=== PATIENT | female | born 1945 | race Caucasian/White ===

== ENCOUNTER 2016-12-09 00:49 | Inpatient (IN) | payer MEDICARE, OTHER ==
--- NOTE | 2016-12-09 01:15 | ED ---
Altered Mental Status HPI - General Chief Complaint: Altered Mental Status Stated Complaint: poss pneumonia Time Seen by Provider: 12/09/16 00:53 Source: EMS Mode of arrival: EMS Limitations: altered mental status - History of Present Illness Initial Comments: This patient is 71-year-old woman reported with history of dementia, sent from [facility] to be evaluated for change in her status. The patient has reportedly been less alert and also not verbal. She reportedly is usually able answer some questions, today she is not responding verbally. They state that the last time that she was like this she had a pneumonia. MD Complaint: altered mental status -: unknown Severity: moderate Context: history of similar presentation Treatments Prior to Arrival: oxygen - Related Data Home Medications Medication Instructions Recorded Confirmed Bisacodyl [Dulcolax] 10 mg RECTAL DAILY PRN 06/19/16 07/17/16 Escitalopram [Lexapro] 20 mg PO DAILY 06/19/16 07/17/16 Loperamide [Imodium] 4 mg PO DAILY PRN 06/19/16 07/17/16 Melatonin 10 mg PO HS@[id number]/19/16 07/17/16 Midodrine [ProAmatine] 5 mg PO TID 06/19/16 07/17/16 Omeprazole 20 mg PO DAILY 06/19/16 07/17/16 Acetaminophen Tab [Tylenol] 650 mg PO Q4H PRN 07/17/16 07/17/16 OLANZapine [ZyPREXA] 5 mg PO DAILY 07/17/16 07/17/16 OLANZapine [ZyPREXA] 10 mg PO HS 07/17/16 07/17/16 Sennosides [Senna] 8.6 mg PO HS 07/17/16 07/17/16 traMADol HCl [Ultram] 100 mg PO Q6HR PRN 07/17/16 07/17/16 Previous Rx's Medication Instructions Recorded Ipratropium-Albuterol Nebulize 3 ml INHALATION RT-QID ampul.neb 06/22/16 [Duoneb 0.5 mg-3 mg/3 ml Soln] Amoxic-Pot Clav 875-125Mg 1 tab PO Q12HR 5 Days 07/21/16 [Augmentin 875-125] Baclofen [Lioresal] 5 mg PO BID #0 07/21/16 Allergies Allergy/AdvReac Type Severity Reaction Status Date / Time haloperidol [From Haldol] Allergy Unknown Verified 07/17/16 08:08 haloperidol lactate Allergy Unknown Verified 07/17/16 08:08 [From Haldol] lithium Allergy Unknown Verified 07/17/16 08:08 Review of Systems ROS Statement: Those systems with pertinent positive or pertinent negative responses have been documented in the HPI. ROS Other: All systems not noted in ROS Statement are negative. Limitations: ROS unobtainable due to patients medical condition Past Medical History Past Medical History: Eye Disorder, GERD/Reflux, GI Bleed Additional Past Medical History / Comment(s): Pt recently admitted 06/19/16 to [facility] with pneumonia. Other HX: Schizophrenia with short term memory problems -shruthi states she does not have dementia, hypotension, lower GI bleed, PUD, anemia , acute blood loss anemia possible due to colitis, cataracts bilaterally, spinal stenosis-chronic back pain, cervicle DDD, gait disturbance, muscle spasms , UTI History of Any Multi-Drug Resistant Organisms: None Reported Past Surgical History: Adenoidectomy, Orthopedic Surgery, Tonsillectomy Additional Past Surgical History / Comment(s): R ankle sx 1960, EGD/colonoscopy. Past Anesthesia/Blood Transfusion Reactions: No Reported Reaction Past Psychological History: Anxiety, Depression, Schizoaffective Disorder Additional Psychological History / Comment(s): Pt currently resides at [facility]. She had recently lived in the [facility]. She until recent pneumonia had been walking with a walker. She is receiving PT at [facility]. She is on a mechanical soft diet-has dentures but wears them infrequently-nectar liquids. She needs assist with all ADLs. Smoking Status: Former smoker Past Alcohol Use History: None Reported Additional Past Alcohol Use History / Comment(s): Pt started smoking about age 21 yrs. She quit in 2011. Past Drug Use History: None Reported - Past Family History Father Family Medical History: Eye Disorder Additional Family Medical History / Comment(s): Father lived to be 88yrs old. Mother Family Medical History: Diabetes Mellitus Additional Family Medical History / Comment(s): Mother lived to be 87 yrs old. General Exam Limitations: altered mental status General appearance: alert, cachectic, other (This patient is an elderly woman who is cachectic and not verbally responsive. She does follow the examiner with her eyes.) Head exam: Present: atraumatic, normocephalic Eye exam: Present: PERRL, EOMI. Absent: scleral icterus, conjunctival injection ENT exam: Present: mucous membranes dry Neck exam: Present: normal inspection. Absent: tenderness, meningismus Respiratory exam: Present: normal lung sounds bilaterally, rhonchi. Absent: respiratory distress, wheezes, rales, stridor, decreased breath sounds Cardiovascular Exam: Present: normal rhythm, tachycardia, normal heart sounds. Absent: systolic murmur, diastolic murmur, rubs, gallop GI/Abdominal exam: Present: soft, tenderness (There is moderate tenderness to lower abdomen greater on the right than left side.), diminished bowel sounds. Absent: distended, guarding, rebound, rigid, mass, pulsatile mass, hernia Extremities exam: Present: normal inspection, normal capillary refill. Absent: pedal edema, calf tenderness Back exam: Present: normal inspection. Absent: CVA tenderness (R), CVA tenderness (L) Neurological exam: Present: alert, other (Patient is not able to cooperate with the neurologic exam.) Skin exam: Present: warm, dry, intact, normal color. Absent: rash Course Vital Signs 12/09/16 12/09/16 12/09/16 00:59 02:00 02:28 Temperature 98.1 F Pulse Rate 124 H 125 H 118 H Respiratory 18 18 18 Rate Blood Pressure 87/65 120/80 117/75 O2 Sat by Pulse 91 L 97 97 Oximetry - Reevaluation(s) Reevaluation #1: 12/09/16 03:19 After reviewing the patient's chest x-ray, I added a computed tomography scan of the abdomen for the free air. I also phoned the patient's daughter at home to discuss treatment options for the free air. Consistent with the wishes for full care, I discussed case with Dr. Greco and apprised her of the CT findings and of the lab results. At this point the patient is too unstable to take to the OR and will require some further resuscitation and correction of electrolyte abnormalities including hyperkalemia. I am placing a central line to facilitate fluid and medication administration. The patient will be admitted to the ICU and we will contact the re etcher on-call. Medical Decision Making - Lab Data Result diagrams: 12/09/16 01:20 12/09/16 01:20 Lab Results 12/09/16 12/09/16 12/09/16 Range/Units 01:20 01:20 01:20 WBC 32.2 H* (3.8-10.6) k/uL RBC 3.87 (3.80-5.40) m/uL Hgb 11.5 (11.4-16.0) gm/dL Hct 37.0 (34.0-46.0) % MCV 95.5 D (80.0-100.0) fL MCH 29.6 (25.0-35.0) pg MCHC 31.0 (31.0-37.0) g/dL RDW 13.5 (11.5-15.5) % Plt Count 1134 H* D (150-450) k/uL Neutrophils % (Manual) 85.5 % Band Neutrophils % 13.5 % Lymphocytes % (Manual) 0.5 % Monocytes % (Manual) 0.5 % Neutrophils # (Manual) 31.9 H (1.3-7.7) k/uL Lymphocytes # (Manual) 0.2 L (1.0-4.8) k/uL Monocytes # (Manual) 0.2 (0-1.0) k/uL Nucleated RBCs 0 (0-0) /100 WBC Manual Slide Review Performed Toxic Vacuolation Present Hypochromasia Slight PT 12.3 H (9.0-12.0) sec INR 1.2 (<1.1) APTT 26.1 (22.0-30.0) sec Sodium 144 (137-145) mmol/L Potassium 7.5 H* (3.5-5.1) mmol/L Chloride 109 H (98-107) mmol/L Carbon Dioxide 19 L (22-30) mmol/L Anion Gap 16 mmol/L BUN 99 H* (7-17) mg/dL Creatinine 2.50 H (0.52-1.04) mg/dL Est GFR (MDRD) Af Amer 23 (>60 ml/min/1.73 sqM) Est GFR (MDRD) Non-Af 19 (>60 ml/min/1.73 sqM) Glucose 79 (74-99) mg/dL Plasma Lactic Acid Sandeep (0.7-2.0) mmol/L Calcium 8.9 (8.4-10.2) mg/dL Total Bilirubin 0.9 (0.2-1.3) mg/dL AST 45 H (14-36) U/L ALT 30 (9-52) U/L Alkaline Phosphatase 205 H (38-126) U/L Troponin I (0.000-0.034) ng/mL Total Protein 5.8 L (6.3-8.2) g/dL Albumin 2.4 L (3.5-5.0) g/dL Urine Color Urine Appearance (Clear) Urine pH (5.0-8.0) Ur Specific [place] (1.001-1.035) Urine Protein (Negative) Urine Glucose (UA) (Negative) Urine Ketones (Negative) Urine Blood (Negative) Urine Nitrite (Negative) Urine Bilirubin (Negative) Urine Urobilinogen (<2.0) mg/dL Ur Leukocyte Esterase (Negative) Urine RBC (0-5) /hpf Urine WBC (0-5) /hpf Ur Squamous Epith Cells (0-4) /hpf Amorphous Sediment (None) /hpf Urine Mucus (None) /hpf 12/09/16 12/09/16 12/09/16 Range/Units 01:20 01:45 01:50 WBC (3.8-10.6) k/uL RBC (3.80-5.40) m/uL Hgb (11.4-16.0) gm/dL Hct (34.0-46.0) % MCV (80.0-100.0) fL MCH (25.0-35.0) pg MCHC (31.0-37.0) g/dL RDW (11.5-15.5) % Plt Count (150-450) k/uL Neutrophils % (Manual) % Band Neutrophils % % Lymphocytes % (Manual) % Monocytes % (Manual) % Neutrophils # (Manual) (1.3-7.7) k/uL Lymphocytes # (Manual) (1.0-4.8) k/uL Monocytes # (Manual) (0-1.0) k/uL Nucleated RBCs (0-0) /100 WBC Manual Slide Review Toxic Vacuolation Hypochromasia PT (9.0-12.0) sec INR (<1.1) APTT (22.0-30.0) sec Sodium (137-145) mmol/L Potassium (3.5-5.1) mmol/L Chloride (98-107) mmol/L Carbon Dioxide (22-30) mmol/L Anion Gap mmol/L BUN (7-17) mg/dL Creatinine (0.52-1.04) mg/dL Est GFR (MDRD) Af Amer (>60 ml/min/1.73 sqM) Est GFR (MDRD) Non-Af (>60 ml/min/1.73 sqM) Glucose (74-99) mg/dL Plasma Lactic Acid Sandeep 2.5 H* (0.7-2.0) mmol/L Calcium (8.4-10.2) mg/dL Total Bilirubin (0.2-1.3) mg/dL AST (14-36) U/L ALT (9-52) U/L Alkaline Phosphatase (38-126) U/L Troponin I <0.012 (0.000-0.034) ng/mL Total Protein (6.3-8.2) g/dL Albumin (3.5-5.0) g/dL Urine Color Dark Brown Urine Appearance Turbid H (Clear) Urine pH 5.5 (5.0-8.0) Ur Specific [place] 1.018 (1.001-1.035) Urine Protein 2+ H (Negative) Urine Glucose (UA) Negative (Negative) Urine Ketones Negative (Negative) Urine Blood Negative (Negative) Urine Nitrite Negative (Negative) Urine Bilirubin 1+ H (Negative) Urine Urobilinogen 3.0 (<2.0) mg/dL Ur Leukocyte Esterase Small H (Negative) Urine RBC 8 H (0-5) /hpf Urine WBC 10 H (0-5) /hpf Ur Squamous Epith Cells 17 H (0-4) /hpf Amorphous Sediment Rare H (None) /hpf Urine Mucus Many H (None) /hpf - EKG Data -: EKG Interpreted by Ar EKG shows normal: sinus rhythm, axis (Normal), intervals (Normal), QRS complexes (Low voltage QRS complexes) Rate: tachycardia (Rate 125 bpm) Interpretation: nonspecific ST-T wave changes
[2016-12-09 01:35] LABS: CH 30.2; CHCM 31.7; HDW 2.57; HGB 11.5 gm/dL (11.4-16.0); Hypochromasia Slight; Immature Gran Flag Marked; MCH 29.6 pg (25.0-35.0); Mean Platelet Volume 7.5; RBC 3.87 m/uL (3.80-5.40); RDW 13.5 % (11.5-15.5); WBC (Perox) 35.64
[2016-12-09 01:44] LABS: MCV 95.5 fL (80.0-100.0); WBC 32.2 k/uL (3.8-10.6)
[2016-12-09 01:45] LABS: INR 1.2 (<1.1); Partial Thromboplastin Time 26.1 sec (22.0-30.0); Prothrombin Time 12.3 sec (9.0-12.0)
[2016-12-09] MEDS: SODIUM CHLORIDE 0.9% 500 ML IV SCH ×2 (01:46→02:13)
[2016-12-09 02:01] LABS: Calcium 8.9 mg/dL (8.4-10.2); Total Bilirubin 0.9 mg/dL (0.2-1.3); Total Protein 5.8 g/dL (6.3-8.2)
[2016-12-09 02:12] LABS: Add Differential Manual Differential
--- NOTE | 2016-12-09 02:12 | XR ---
EXAM: XR Chest, 1 View CLINICAL HISTORY: Reason: Fever TECHNIQUE: Frontal view of the chest. COMPARISON: 07/19/16 portable chest FINDINGS: Lungs: Mild bibasilar atelectasis or infiltrates, right greater than left. Pleural space: Unremarkable. No pneumothorax. Heart: Stable. No cardiomegaly. Mediastinum: Stable. Bones/joints: Stable. Upper abdomen: There is free intraperitoneal air present. IMPRESSION: 1. Bibasilar atelectasis versus infiltrates. 2. Free intraperitoneal air suggesting hollow viscus perforation assuming no recent abdominal or pelvic surgery/intervention. The covering clinician is being contacted at time of dictation 0210 hrs. Eastern standard time. [employer] 12/09/16 02:13 Call Doctor Regarding Bowel Perforation with Free Air, called Dr. Gilbert on 12/09 02:13 (-04:00)
[2016-12-09 02:15] LABS: Band Neutrophils % 13.5 %; Manual Review Performed; Nucleated Red Blood Cells 0 /100 WBC (0-0); Total Cells Counted 200; Toxic Vacuolation Present
[2016-12-09 02:16] LABS: Potassium 7.5 mmol/L (3.5-5.1)
[2016-12-09] MEDS ORDERED: PIPERACILLIN-TAZOBACTAM 3.375 GM in DEXTROSE/WATER 1 50ML.BAG IVPB STA (02:16)
[2016-12-09 02:18] LABS: Amorphous Sediment,Urine Rare /hpf; Appearance,Urine Turbid (Clear); Bilirubin,Urine 1+ (Negative); Glucose,Urine (UA) Negative (Negative); Ketones,Urine Negative (Negative); Leukocyte Esterase,Urine Small (Negative); Mucus,Urine Many /hpf; Nitrite,Urine Negative (Negative); PH, Urine 5.5 (5.0-8.0); Particle Count 86402; Protein,Urine 2+ (Negative); RBC,Urine 8 /hpf (0-5); Specific Gravity,Urine 1.018 (1.001-1.035); Squamous Epithelial Cell,Urine 17 /hpf (0-4); UA Billing (MACRO vs. MICRO) MICRO; WBC,Urine 10 /hpf (0-5)
[2016-12-09] MEDS ORDERED: SODIUM CHLORIDE 0.9% 1,000 ML IV ONE (02:32)
--- NOTE | 2016-12-09 03:14 | CT ---
EXAM: CT Abdomen and Pelvis Without Intravenous Contrast CLINICAL HISTORY: Reason: Pain TECHNIQUE: Axial computed tomography images of the abdomen and pelvis without intravenous contrast. CTDI is 5.00 mGy and DLP is 266.00 mGy-cm This CT exam was performed using one or more of the following dose reduction techniques: automated exposure control, adjustment of the mA and/or kV according to patient size, and/or use of iterative reconstruction technique. COMPARISON: Current portable chest. FINDINGS: Lower thorax: Right greater than left basilar atelectasis/infiltrates and small pleural effusions. There is free air that tracks through the diaphragmatic hiatus alongside a moderate hiatal hernia, into the posterior mediastinum. ABDOMEN: Liver: Unremarkable. Gallbladder and bile ducts: Several gallstones measuring up to 2.7 cm within distended gallbladder. No obvious pericholecystic fluid or stranding however. No ductal dilation. Pancreas: Unremarkable. Spleen: Unremarkable. No splenomegaly. Adrenals: Unremarkable. No mass. Kidneys and ureters: 2.5 cm probable cyst in the right lower pole kidney. Unenhanced left kidney unremarkable. No obstructing stones. No hydronephrosis. Stomach and bowel: Moderate to large amount of colonic stool throughout. No gross evidence of obstruction. Appendix: Not seen. PELVIS: Bladder: The bladder is decompressed. Reproductive: Uterus and ovaries are not well seen. ABDOMEN and PELVIS: Intraperitoneal space: Large volume of free intraperitoneal air consistent with hollow viscus perforation. Approximate 5.8 cm in transverse diameter air and fluid containing collection in the left pelvis series 3 image 82, suspect for an abscess. There are other smaller pockets of air and fluid in the lower abdomen and pelvis with additional air and layering fluid anteriorly in the upper and mid abdomen. Bones/joints: Osteopenia and multilevel degenerative changes. Moderate T12 compression deformity, likely chronic. Vasculature: Atherosclerotic calcifications throughout without evidence of abdominal aortic aneurysm. Lymph nodes: No bulky adenopathy. IMPRESSION: 1. Findings consistent with hollow viscus perforation with large amount of free air, free and loculated fluid throughout the abdomen and pelvis. This was called to Dr. Gilbert at time of dictation 0313 hrs. Eastern standard time 2. Cholelithiasis with distended gallbladder without pericholecystic stranding or wall thickening seen at this time. 3. Bibasilar atelectasis or infiltrates and small bilateral pleural effusions. 4. Additional findings as above. [employer] 12/09/16 03:13 Call Doctor Regarding Bowel Perforation with Free Air, called Dr. Gilbert on 12/09 03:13 (-04:00)
[2016-12-09] MEDS ORDERED: MORPHINE SULFATE 2 MG/ML SYRINGE IV PRN ×2 (03:46→10:37)
[2016-12-09] MEDS ORDERED: ARTIFICIAL TEARS-HYPROMELLOSE DROPS 15 ML BTL BOTH EYES PRN (03:46)
[2016-12-09] MEDS ORDERED: NALOXONE 0.4 MG/ML 1 ML VIAL IV PRN (03:46)
[2016-12-09] MEDS ORDERED: ACETAMINOPHEN SUPPOSITORY 650 MG SUPP RECTAL PRN (03:46)
[2016-12-09] MEDS ORDERED: SODIUM CHLORIDE 0.9% 1,000 ML IV STA (03:48)
[2016-12-09] MEDS ORDERED: INSULIN REGULAR 100 UNIT/ML VIAL IV STA (04:01)
[2016-12-09] MEDS ORDERED: SODIUM BICARB 8.4% 50 ML SYR (1 MEQ/ML) IV STA (04:01)
[2016-12-09] MEDS ORDERED: CALCIUM GLUCONATE 1,000 MG in SODIUM CHLORIDE 0.9% 100 ML IVPB ONE (04:01)
[2016-12-09] MEDS ORDERED: DEXTROSE 50%-WATER 50 ML SYRINGE IVP STA (04:01)
[2016-12-09] MEDS: SODIUM CHLORIDE 0.9% 1,000 ML IV SCH ×2 (04:01→11:34)
[2016-12-09] MEDS ORDERED: SODIUM ACETATE 50 MEQ in WATER FOR INJECTION, STERILE 250 ML IV ONE (04:15)
[2016-12-09] MEDS ORDERED: DEXTROSE 5% IN WATER 1,000 ML with SODIUM ACETATE 50 MEQ IV SCH (04:15)
[2016-12-09 05:32] LABS: ABG Base Excess -4.9 mmol/L; ABG HCO3 19 mmol/L (21-25); ABG PCO2 34 mmHg (35-45); ABG PH 7.37 (7.35-7.45); ABG PO2 66 mmHg (83-108); ABG TCO2 21 mmol/L (19-24)
[2016-12-09 05:48] LABS: Calcium 7.7 mg/dL (8.4-10.2); Magnesium 2.4 mg/dL (1.6-2.3); Potassium 4.3 mmol/L (3.5-5.1); Total Bilirubin 0.5 mg/dL (0.2-1.3); Total Protein 3.9 g/dL (6.3-8.2)
[2016-12-09 05:48] LABS: Glucose,Whole Blood 91 mg/dL (75-99)
[2016-12-09 06:31] VITALS: BMI 19.3
[2016-12-09] MEDS ORDERED: NOREPINEPHRIN 16 MG-0.9%NS PMX 16 MG/250 ML ML IV SCH (06:45)
--- NOTE | 2016-12-09 07:55 | XR ---
EXAMINATION TYPE: XR chest 1V portable DATE OF EXAM: 12/09/2016 6:25 AM Comparison: 12/09/2016, earlier today. Also, correlation CT abdomen and pelvis earlier today. Clinical History: 71-year-old female with adventitial lung sounds. Findings: The heart remains upper limits of normal in size. Free air again noted below both hemidiaphragms. In creasing left basilar opacity. Increasing retrocardiac opacity, new bands of atelectasis at the right mid and lower lung. Pulmonary vasculature within normal limits. Impression: 1. Known free intraperitoneal air. 2. Increasing consolidation/atelectasis at the left base and retrocardiac region. Increasing bands of atelectasis at the right mid and lower lung. Suspect trace left effusion.
[2016-12-09] MEDS ORDERED: PANTOPRAZOLE 40 MG/10 ML VIAL IV SCH (09:00)
--- NOTE | 2016-12-09 09:08 | P.CNPUL ---
History of Present Illness Consult date: 12/09/16 Chief complaint: Acute abdomen History of present illness: This 71-year-old female patient with advanced schizoaffective disorder, episodes of psychosis, residential resident who has been progressively socially withdrawn and she does the point where she is bedridden and unable to move around hardly able to feed herself at baseline. The patient came yesterday because of worsening mentation and feeling lethargic and she was also having some increased abdominal pain. At that time, the patient was found to have severe leukocytosis, lactic acidosis, diminished urine output and acute kidney injury. CAT scan of the abdomen and pelvis was done and the emergency department and the findings were consistent with how local viscous perforation with large amount of free air, free and loculated fluid throughout the abdomen and pelvis. There was also cholelithiasis and distended gallbladder without pericholecystic fluid or changes. There was small pleural effusions in the lung bases bilaterally. The patient's potassium level was at 7.5 Surgery was consulted on this patient from the emergency department. The case was discussed apparently with Dr. Greco. Based on the discussions, the surgeons did not find that the patient was a good candidate for surgical intervention. I was informed of the admission to the ICU following that. During her ICU stay, the patient was given a total of 4 L of IV fluids and she was started on norepinephrine infusion at 8 mics which is maintaining a map above 65. She is also on a normal state rate of 100 mL an hour. Currently she is on IV Zosyn. Her potassium level was treated and she is down to 4.3. Her bicarb level is at 21. Lactic acid level is at 3.4 and urine output is still diminished between 5-10 mL an hour. The patient is not having any pain. She grimaces upon palpation of the abdomen and she has a firm abdomen at this point. White cell count is up to 32,000. Family is at the bedside. Gen. surgery was again contacted and I had a discussion with Dr. Greco who in turn will come and have a discussion with the family and discuss the mid options. Obviously in absence of surgery the patient stands no chance of recovery and this will end up in today mortality. The alternative will be surgical intervention the outcomes of which are uncertain especially with her advanced comorbidities and poor baseline performance and functional status. I am waiting for final decisions to be made by the family after having a discussion with the general surgeon. She is currently on 100% nonrebreather facemask. Saturations around 97%. Review of Systems ROS unobtainable: due to mental status Past Medical History Past Medical History: Eye Disorder, GERD/Reflux, GI Bleed, Memory Impairment, Pneumonia Additional Past Medical History / Comment(s): Pt recently admitted 06/19/16 to [facility] with pneumonia. Other HX: Schizophrenia with short term memory problems , lower GI bleed, PUD, anemia, acute blood loss anemia possible due to colitis, cataracts bilaterally, spinal stenosis-chronic back pain, cervicle DDD, gait disturbance, muscle spasms, UTI History of Any Multi-Drug Resistant Organisms: None Reported Past Surgical History: Adenoidectomy, Orthopedic Surgery, Tonsillectomy Additional Past Surgical History / Comment(s): R ankle sx 1960, EGD/colonoscopy. Past Anesthesia/Blood Transfusion Reactions: No Reported Reaction Past Psychological History: Anxiety, Depression, Schizoaffective Disorder Additional Psychological History / Comment(s): Pt currently resides at [facility]. She had recently lived in the [facility]. She until recent pneumonia had been walking with a walker. She is receiving PT at [facility]. She is on a mechanical soft diet-has dentures but wears them infrequently-nectar liquids. She needs assist with all ADLs. Smoking Status: Former smoker Past Alcohol Use History: None Reported Additional Past Alcohol Use History / Comment(s): Pt started smoking about age 21 yrs. She quit in 2011. Past Drug Use History: None Reported - Past Family History Father Family Medical History: Eye Disorder Additional Family Medical History / Comment(s): Father lived to be 88yrs old. Mother Family Medical History: Diabetes Mellitus Additional Family Medical History / Comment(s): Mother lived to be 87 yrs old. Medications and Allergies Home Medications Medication Instructions Recorded Confirmed Type Escitalopram [Lexapro] 20 mg PO DAILY 06/19/16 12/09/16 History Melatonin 10 mg PO HS@199906/19/16 12/09/16 History Midodrine [ProAmatine] 5 mg PO TID 06/19/16 12/09/16 History Acetaminophen Tab [Tylenol] 650 mg PO Q4H PRN 07/17/16 12/09/16 History traMADol HCl [Ultram] 100 mg PO Q6HR 07/17/16 12/09/16 History Dronabinol [Marinol] 2.5 mg PO BID 12/09/16 12/09/16 History Famotidine [Pepcid] 20 mg PO BID 12/09/16 12/09/16 History Ipratropium-Albuterol Nebulize 3 ml INHALATION RT-Q6H PRN 12/09/16 12/09/16 History [Duoneb 0.5 mg-3 mg/3 ml Soln] Magnesium Hydroxide [Milk of 2,400 mg PO Q72H PRN 12/09/16 12/09/16 History Magnesia] Meloxicam [Mobic] 7.5 mg PO DAILY 12/09/16 12/09/16 History Multivitamins, Thera [Multivitamin 1 tab PO DAILY 12/09/16 12/09/16 History (formulary)] OLANZapine [ZyPREXA] 20 mg PO HS 12/09/16 12/09/16 History Sennosides-Docusate Sodium 1 tab PO DAILY 12/09/16 12/09/16 History [Senokot-S] Allergies Allergy/AdvReac Type Severity Reaction Status Date / Time haloperidol [From Haldol] Allergy Unknown Verified 12/09/16 08:11 haloperidol lactate Allergy Unknown Verified 12/09/16 08:11 [From Haldol] lithium Allergy Unknown Verified 12/09/16 08:11 Physical Exam Vitals: Vital Signs Temp Pulse Resp BP Pulse Ox 12/09/16 07:00 105 H 16 71/57 95 12/09/16 06:45 102 H 15 67/55 96 12/09/16 06:30 105 H 19 67/55 97 12/09/16 06:15 105 H 15 75/56 96 12/09/16 06:00 97.1 F L 103 H 15 98/68 96 12/09/16 05:45 116 H 27 H 84/60 94 L 12/09/16 05:39 93 L 12/09/16 04:54 97.2 F L 105 H 18 97/62 93 L 12/09/16 04:24 111 H 19 93/68 93 L Intake and Output 12/08/16 12/09/16 12/09/16 22:59 06:59 14:59 Intake Total 4.915 Output Total 0 10 Balance 0 -5.085 Intake: Intake, IV Titration 4.915 Amount Norepinephrin 16 mg-0.9% 4.915 Ns Pmx 16 mg In 250 ml @ Titrate IV .Q0M [facility] Rx#: [id number] Output: Urine 0 10 Other: Weight 54.431 kg The patient is on 100% nonrebreather facemask. The patient is nonverbal. She looks thin cachectic. She has significant muscle wasting. Head exam was generally normal. There was no scleral icterus or corneal arcus. Mucous membranes were moist.Neck was supple and without jugular venous distension, thyromegaly, or carotid bruits. Carotids were easily palpable bilaterally. There was no adenopathy. Lung sounds are diminished in lung bases bilaterally. No wheezes or rhonchi or any crackles. Breath sounds are equal and symmetrical.Cardiac exam revealed the PMI to be normally situated and sized. The rhythm was regular and no extrasystoles were noted during several minutes of auscultation. The first and second heart sounds were normal and physiologic splitting of the second heart sound was noted. There were no murmurs, rubs, clicks, or gallops. Abdomen is firm and there is some tenderness direct. Bowel sounds are absent. No ascites. The firmness and tenderness is in all 4 quadrants.Examination of the extremities revealed easily palpable radial, femoral and pedal pulses. There was no cyanosis, clubbing or edema. Pulses are diminished in the feet bilaterally. There are still palpable. Neurologically, the patient withdraws only to painful stimuli. Does not communicate. Cranial nerves are intact and there is no facial asymmetry. Speech cannot be assessed. Motor function cannot be assessed. Reflexes are diminished at the present. Results - Laboratory Findings CBC and BMP: 12/09/16 01:20 12/09/16 05:20 ABG ABG pH 7.37 (7.35-7.45) 12/09/16 05:18 ABG pCO2 34 mmHg (35-45) L 12/09/16 05:18 ABG pO2 66 mmHg (83-108) L 12/09/16 05:18 ABG O2 Saturation 93.0 % (94-97) L 12/09/16 05:18 PT/INR, D-dimer PT 12.3 sec (9.0-12.0) H 12/09/16 01:20 INR 1.2 (<1.1) 12/09/16 01:20 Abnormal lab findings: Abnormal Labs 12/09/16 12/09/16 12/09/16 05:18 05:20 05:20 ABG pCO2 34 L ABG pO2 66 L ABG HCO3 19 L ABG O2 Saturation 93.0 L Sodium 147 H Chloride 115 H Carbon Dioxide 21 L BUN 86 H* Creatinine 2.20 H Plasma Lactic Acid Sandeep 3.4 H* Calcium 7.7 L Phosphorus 5.0 H Magnesium 2.4 H Total Protein 3.9 L Albumin 1.5 L - Diagnostic Findings Chest x-ray: image reviewed Assessment and Plan Plan: Assessment 1 acute abdomen with a perforated viscus and intra-abdominal sepsis. Please refer to the CAT scan of the abdomen and pelvis findings. General surgeries on the case. Awaiting final recommendations 2 acute septic shock secondary to above. The patient was resuscitated aggressively with IV fluids and she remains oliguric. The patient was given broad-spectrum antibiotics and the patient is on IV Zosyn and she is also on 8 mics of norepinephrine infusion. 3 leukocytosis secondary to above 4 lactic acidosis secondary to above 5 acute kidney injury secondary to above 6 almost cytosis secondary to above 7 schizoaffective disorder with advanced psychiatric disease and episodes of psychosis. Patient is significantly socially withdrawn. The patient has impairment in her cognition secondary to her underlying schizophrenia. Memory is poor. Performance and functional status is poor as discussed above. 8 chronic back pain secondary to spinal stenosis 9 previous history of GI bleed 10 previous history of peptic ulcer disease 11 residential resident Plan We'll continue supportive patient is here in the ICU. I made it clear to the family that this is a on a percent mortality in the absence of any surgical intervention. However, surgery itself can be complicated specially with advanced comorbidities and poor baseline performance and functional status. Dr. Greco will be arriving to the ICU and initiating discussion with the family. Based on that further recommendations will be made. In the absence of surgical intervention, I would recommend comfort care/hospice. I myself spoke to the daughter, Mini, and she was not able to make it final decision pH 1 to talk to the surgeon and accordingly make further decisions. Pulses remains poor.
[2016-12-09 09:28] VITALS: TEMP 98.2
[2016-12-09] MEDS ORDERED: SCOPOLAMINE 1.5MG/72HR PATCH TRANSDERM PRN (10:34)
--- NOTE | 2016-12-09 11:30 | P.GSHP ---
History of Present Illness H&P Date: 12/09/16 Chief Complaint: Free air The patient is a 71-year-old female transferred from [facility] with abdominal distention and change in affect. She has history of schizoaffective disorder. She often has catatonic state. Her daughter is at bedside who gives additional history including the patient's activity of daily living is performed by others. She reports that her mother's been schizophrenic and primarily dependent for most of her life. She reports that her mother was recently hospitalized for pneumonia within the last month. She also reports that her mother has chronic constipation. She was brought into the emergency room earlier this morning by the [facility] facility where she has been ill at least for 3 days. Computed tomography scan findings were consistent with diffuse free air extending into the mediastinum. Additionally a large stomach herniation to chest was identified. The patient came in severely dehydrated including, with acute renal insufficiency, multiple electrolyte dyscrasias, hyperkalemic, acidotic and cachectic. Her blood cell count is well over WBC 30, 000. Her platelet count is over 11,000. Per discussion with her daughter, she had not seen her mother in 2 weeks which may have been corresponding to the timeframe of her illness. As a result of her presentation, the patient had been admitted to the intensive care unit. - Review of Systems Comment: (Information obtained per records and the patient's family.) CONSTITUTIONAL: Recent weight 8 pound weight gain with appetite stimulant in the past month. No reports of fevers. HEENT: No trouble with vision, hearing or nosebleeds. No difficulty swallowing. LYMPHATIC: No lumps and bumps around the neck. ENDOCRINE: No thyroid disorders. No blood sugar glucose intolerance. RESPIRATORY: Recent pneumonia. No troubled with breathing or dyspnea on exertion. CARDIOVASCULAR: No recent heart attacks. No history of cardiac catheterizations. GASTROINTESTINAL: Has heart burn, constipation. Previous history of colitis. Previous history of GI bleed. GENITOURINARY: No blood in urine. MUSCULOSKELETAL: Has back pain, stiffness, joint arthritis. NEUROLOGIC: No seizure disorders. No history of recent stroke. PSYCHIATRIC: Has severe schizophrenia with catatonic state and depression. HEMATOLOGIC: No abnormal bleeding or bruising. Past Medical History Past Medical History: Eye Disorder, GERD/Reflux, GI Bleed, Memory Impairment, Pneumonia Additional Past Medical History / Comment(s): Pt recently admitted 06/19/16 to [facility] with pneumonia. Other HX: Schizophrenia with short term memory problems , lower GI bleed, PUD, anemia, acute blood loss anemia possible due to colitis, cataracts bilaterally, spinal stenosis-chronic back pain, cervicle DDD, gait disturbance, muscle spasms, UTI History of Any Multi-Drug Resistant Organisms: None Reported Past Surgical History: Adenoidectomy, Orthopedic Surgery, Tonsillectomy Additional Past Surgical History / Comment(s): R ankle sx 1960, EGD/colonoscopy. Past Anesthesia/Blood Transfusion Reactions: No Reported Reaction Past Psychological History: Anxiety, Depression, Schizoaffective Disorder Additional Psychological History / Comment(s): Pt currently resides at [facility]. She had recently lived in the [facility]. She until recent pneumonia had been walking with a walker. She is receiving PT at [facility]. She is on a mechanical soft diet-has dentures but wears them infrequently-nectar liquids. She needs assist with all ADLs. Smoking Status: Former smoker Past Alcohol Use History: None Reported Additional Past Alcohol Use History / Comment(s): Pt started smoking about age 21 yrs. She quit in 2011. Past Drug Use History: None Reported - Past Family History Father Family Medical History: Eye Disorder Additional Family Medical History / Comment(s): Father lived to be 88yrs old. Mother Family Medical History: Diabetes Mellitus Additional Family Medical History / Comment(s): Mother lived to be 87 yrs old. Medications and Allergies Home Medications Medication Instructions Recorded Confirmed Type Escitalopram [Lexapro] 20 mg PO DAILY 06/19/16 12/09/16 History Melatonin 10 mg PO HS@199906/19/16 12/09/16 History Midodrine [ProAmatine] 5 mg PO TID 06/19/16 12/09/16 History Acetaminophen Tab [Tylenol] 650 mg PO Q4H PRN 07/17/16 12/09/16 History traMADol HCl [Ultram] 100 mg PO Q6HR 07/17/16 12/09/16 History Dronabinol [Marinol] 2.5 mg PO BID 12/09/16 12/09/16 History Famotidine [Pepcid] 20 mg PO BID 12/09/16 12/09/16 History Ipratropium-Albuterol Nebulize 3 ml INHALATION RT-Q6H PRN 12/09/16 12/09/16 History [Duoneb 0.5 mg-3 mg/3 ml Soln] Magnesium Hydroxide [Milk of 2,400 mg PO Q72H PRN 12/09/16 12/09/16 History Magnesia] Meloxicam [Mobic] 7.5 mg PO DAILY 12/09/16 12/09/16 History Multivitamins, Thera [Multivitamin 1 tab PO DAILY 12/09/16 12/09/16 History (formulary)] OLANZapine [ZyPREXA] 20 mg PO HS 12/09/16 12/09/16 History Sennosides-Docusate Sodium 1 tab PO DAILY 12/09/16 12/09/16 History [Senokot-S] Allergies Allergy/AdvReac Type Severity Reaction Status Date / Time haloperidol [From Haldol] Allergy Unknown Verified 12/09/16 08:11 haloperidol lactate Allergy Unknown Verified 12/09/16 08:11 [From Haldol] lithium Allergy Unknown Verified 12/09/16 08:11 Surgical - Exam Vital Signs Temp Pulse Resp BP Pulse Ox 98.1 F 124 H 18 87/65 91 L 12/09/16 00:59 12/09/16 00:59 12/09/16 00:59 12/09/16 00:59 12/09/16 00:59 GENERAL: Grossly cachectic female who is catatonic and in no acute distress. HEENT: No sclera icterus. Extraocular movements grossly intact. Moist buccal mucosa. Head is atraumatic, normocephalic. Hears conversational speech. No nasal drainage. Nasogastric tube along left nares. NECK: Supple without lymphadenopathy. CHEST: Mild labored respirations and equal bilateral excursions. CARDIOVASCULAR: Tachycardic. Palpable 2+ radial pulses. ABDOMEN: Has mild guarding. Mild abdominal distention. No discoloration of the abdomen. No large palpable abdominal wall hernias. MUSCULOSKELETAL: No clubbing, cyanosis or edema. NEUROLOGIC: No focal or lateralizing signs. PSYCH: Flat affect. Patient is catatonic. Patient is nonverbal. Results - Labs 12/09/16 01:20 12/09/16 05:20 Abnormal Lab Results - Last 24 Hours (Table) 12/09/16 12/09/1617 Range/Units 05:18 05:20 05:20 ABG pCO2 34 L (35-45) mmHg ABG pO2 66 L (83-108) mmHg ABG HCO3 19 L (21-25) mmol/L ABG O2 Saturation 93.0 L (94-97) % Sodium 147 H (137-145) mmol/L Chloride 115 H (98-107) mmol/L Carbon Dioxide 21 L (22-30) mmol/L BUN 86 H* (7-17) mg/dL Creatinine 2.20 H (0.52-1.04) mg/dL Plasma Lactic Acid Sandeep 3.4 H* (0.7-2.0) mmol/L Calcium 7.7 L (8.4-10.2) mg/dL Phosphorus 5.0 H (2.5-4.5) mg/dL Magnesium 2.4 H (1.6-2.3) mg/dL Total Protein 3.9 L (6.3-8.2) g/dL Albumin 1.5 L (3.5-5.0) g/dL Diabetes panel 12/09/16 Range/Units 05:20 Sodium 147 H (137-145) mmol/L Potassium 4.3 (3.5-5.1) mmol/L Chloride 115 H (98-107) mmol/L Carbon Dioxide 21 L (22-30) mmol/L BUN 86 H* (7-17) mg/dL Creatinine 2.20 H (0.52-1.04) mg/dL Glucose 99 (74-99) mg/dL Calcium 7.7 L (8.4-10.2) mg/dL AST 32 (14-36) U/L ALT 31 (9-52) U/L Alkaline Phosphatase 114 (38-126) U/L Total Protein 3.9 L (6.3-8.2) g/dL Albumin 1.5 L (3.5-5.0) g/dL Calcium panel 12/09/16 Range/Units 05:20 Calcium 7.7 L (8.4-10.2) mg/dL Phosphorus 5.0 H (2.5-4.5) mg/dL Albumin 1.5 L (3.5-5.0) g/dL Pituitary panel 12/09/16 Range/Units 05:20 Sodium 147 H (137-145) mmol/L Potassium 4.3 (3.5-5.1) mmol/L Chloride 115 H (98-107) mmol/L Carbon Dioxide 21 L (22-30) mmol/L BUN 86 H* (7-17) mg/dL Creatinine 2.20 H (0.52-1.04) mg/dL Glucose 99 (74-99) mg/dL Calcium 7.7 L (8.4-10.2) mg/dL Adrenal panel 12/09/16 Range/Units 05:20 Sodium 147 H (137-145) mmol/L Potassium 4.3 (3.5-5.1) mmol/L Chloride 115 H (98-107) mmol/L Carbon Dioxide 21 L (22-30) mmol/L BUN 86 H* (7-17) mg/dL Creatinine 2.20 H (0.52-1.04) mg/dL Glucose 99 (74-99) mg/dL Calcium 7.7 L (8.4-10.2) mg/dL Total Bilirubin 0.5 (0.2-1.3) mg/dL AST 32 (14-36) U/L ALT 31 (9-52) U/L Alkaline Phosphatase 114 (38-126) U/L Total Protein 3.9 L (6.3-8.2) g/dL Albumin 1.5 L (3.5-5.0) g/dL - Imaging CT scan - abdomen: report reviewed, image reviewed CT scan - pelvis: report reviewed, image reviewed (Large gallstones identified including diffuse pneumoperitoneum extending into the mediastinum and hiatal hernia) Assessment and Plan (1) Schizophrenia, catatonic, chronic Status: Acute (2) Pneumoperitoneum of unknown etiology Status: Acute (3) Sepsis Status: Acute (4) Hyperkalemia Status: Acute (5) Debility Status: Acute (6) Acute renal failure due to tubular necrosis Status: Acute (7) Leukocytosis Status: Acute (8) Sepsis with multi-organ dysfunction Status: Acute (9) Confusion Status: Acute (10) Dehydration Status: Acute (11) Pneumonia Status: Acute (12) Dementia Status: Chronic Plan: 1. With the presentation of acute renal failure including hyperkalemia, sepsis , WBC over 30,000 and severe thrombocytosis, these are all features gravely concerning for bowel with her pneumoperitoneum. I discussed with the family that this may have easily been going on for more than several days with her chemistries. 2. At baseline, she has very limited mobility as well as being 100% dependent for activities of daily living. She has baseline malnutrition which makes any chance of potential full recovery poor. 3. She has received fluid boluses to correct her severe hydration. She is currently on levothyroxine to maintain her blood pressure. 4. I had a candid discussion over 1 hr with the patient's family regarding the futility of surgical intervention in the presentation of her sepsis. At best, recovery will need prolonged life support for which her daughter stated that her mother doesn't want. 5. Comfort measures with hospice care was discussed whereby her mother may still be awake where the family may still communicate to her. 6. Coordination of care with shell freezing machine operator, emergency room provider, anesthesiologist were also discussed whereby hospice care is advised for the benefit of the patient and family. Over 75 minutes of coordination of care performed at bedside.
[2016-12-09] MEDS: MORPHINE SULFATE (100 MG/2 ML) 100 MG in SODIUM CHLORIDE 0.9% 100 ML IV SCH (11:33)
[2016-12-09 11:51] VITALS: BP 105/62; PULSE 113
[2016-12-09] MEDS ORDERED: PIPERACILLIN-TAZOBACTAM 3.375 GM in DEXTROSE/WATER 1 50ML.BAG IVPB SCH (15:00)
--- NOTE | 2016-12-09 15:02 | P.DS ---
Providers Date of admission: 12/09/16 04:03 Expected date of discharge: 12/09/16 Attending physician: Nikky Hernandez Consults: 12/09/16 06:47 Consult Physician Routine Consulting Provider: Chinmay June Consult Reason/Comments: Medical management Do you want consulting provider notified?: Already Contacted Primary care physician: Migel Coleman - Discharge Diagnosis(es) (1) Schizophrenia, catatonic, chronic Current Visit: Yes Status: Acute (2) Pneumoperitoneum of unknown etiology Current Visit: Yes Status: Acute (3) Sepsis Current Visit: Yes Status: Acute (4) Hyperkalemia Current Visit: Yes Status: Acute (5) Debility Current Visit: Yes Status: Acute (6) Acute renal failure due to tubular necrosis Current Visit: Yes Status: Acute (7) Leukocytosis Current Visit: Yes Status: Acute (8) Sepsis with multi-organ dysfunction Current Visit: Yes Status: Acute (9) Confusion Current Visit: No Status: Acute (10) Dehydration Current Visit: No Status: Acute (11) Pneumonia Current Visit: No Status: Acute (12) Dementia Current Visit: No Status: Chronic Priority: Medium Hospital Course: The patient is a 71-year-old female who comes in with history of pneumoperitoneum for several days. She has history of baseline schizophrenia with catatonia. She also has history of protein malnutrition, cachexia, including activities of daily living performed with full assistance. She presented to the hospital with janneth sepsis with blood cell count of 30,000 and hyperkalemia and acute renal failure. She presented with multisystem organ dysfunction secondary to sepsis. Comfort Care measures including hospice and surgical options were described. She was initially maintained on pressors. The patient was changed from focal to DO NOT RESUSCITATE and DO NOT INTUBATE. Given the patient's baseline debility, Comfort Care measures and hospice were described with the family for which they agreed. Patient will be transferred to [facility] for comfort care and hospice. Pertinent Studies: CT of the abdomen and pelvis demonstrating diffuse pneumoperitoneum including into the mediastinum. Gallstones also identified. Procedures: None. Patient Condition at Discharge: Poor Plan - Discharge Summary Discharge Medication List Escitalopram [Lexapro] 20 mg PO DAILY 06/19/16 [History] Melatonin 10 mg PO HS@199906/19/16 [History] Midodrine [ProAmatine] 5 mg PO TID 06/19/16 [History] Acetaminophen Tab [Tylenol] 650 mg PO Q4H PRN 07/17/16 [History] traMADol HCl [Ultram] 100 mg PO Q6HR 07/17/16 [History] Dronabinol [Marinol] 2.5 mg PO BID 12/09/16 [History] Famotidine [Pepcid] 20 mg PO BID 12/09/16 [History] Ipratropium-Albuterol Nebulize [Duoneb 0.5 mg-3 mg/3 ml Soln] 3 ml INHALATION RT -Q6H PRN 12/09/16 [History] Magnesium Hydroxide [Milk of Magnesia] 2,400 mg PO Q72H PRN 12/09/16 [History] Meloxicam [Mobic] 7.5 mg PO DAILY 12/09/16 [History] Multivitamins, Thera [Multivitamin (formulary)] 1 tab PO DAILY 12/09/16 [History ] OLANZapine [ZyPREXA] 20 mg PO HS 12/09/16 [History] Sennosides-Docusate Sodium [Senokot-S] 1 tab PO DAILY 12/09/16 [History] Follow up Appointment(s)/Referral(s): Migel Coleman DO [Primary Care Provider] - 1 Week Discharge Disposition: DISCH TO [facility]
[2016-12-09 16:25] VITALS: RESP 8
[2016-12-10] MEDS: MORPHINE SULFATE (100 MG/2 ML) 100 MG in SODIUM CHLORIDE 0.9% 100 ML IV SCH (03:44)
[2016-12-10] MEDS ORDERED: LORazepam 2 MG/ML SYRINGE IV PRN (11:34)
--- NOTE | 2016-12-10 15:06 | P.PN ---
Progress Note - Text Notified by patient's nurse that she has passed at 14:52. I came by and spoke with her family at bedside and gave them my regards. Patient to be dispositioned to home or location per family request.
--- NOTE | 2016-12-13 11:38 | CDI ---
In responding to this query, please exercise your independent professional judgment. The [facility] Coding Staff and Clinical Documentation Specialists appreciate your assistance in clarifying documentation, maintaining compliance with coding guidelines, accurately documenting patients condition and capturing severity of illness. The fact that a question is asked does not imply that any particular answer is desired or expected. Communication forms are a method of clarifying documentation and are not made part of the Legal Health Record. Thank you in advance for your clarification. Last Revision, June 2015 Dony Becerra [address] [place] [address] Documentation Clarification Form Date: 12/13/2016 11:17:00 AM From: Cris Valadez/Sejal Gomez, [employer] Admit Date: 12/09/2016 4:03:00 AM Patient Name: Alexia Zhu Visit Number: [id number] Discharge Date: Dr. Nikky Hernandez Malnutrition has been documented in H&P and discharge summary . History/Risk Factors: This patient is a long-term patient admitted for pneumoperitoneum and severe sepsis, bedridden, dementia and catatonic schizophrenia. Clinical Indicators: Cachexia Labs: Albumin/ Pre albumin/Total Protein: Albumin 2.4 on admit and down to 1.5 , protein- 5.8 on admit and down to 3.9 Current BMI: 24.7 Lab monitoring: Repeat albumin and protein levels In your professional opinion, can you please clarify if these findings signify one of the following conditions? Mild Protein Malnutrition Mild Protein-Calorie Malnutrition Moderate Protein Malnutrition Moderate Protein-Calorie Malnutrition Severe Protein Malnutrition Severe Protein-Calorie Malnutrition Malnutrition following GI surgery Malnutrition Other condition, please specify Unable to determine Please document in your progress notes and discharge summary in order to capture severity of illness and risk of mortality. Include clinical findings that support your diagnosis. FYI: Press F11 to launch patient chart. Place X here if this finding has no clinical significance, is not applicable or if you are not able to provide any additional documentation. Moderate Protein-Calorie Malnutrition MTDD
== END 2016-12-10 17:24 | disposition expired | DRG 871 ==
LOC: EC 00:49 → 6ICU 04:03 → 5ONC 16:08
PROVIDERS: ADMIT Surgery Plastic and Reconstructive Surgery; ATTEND Surgery Plastic and Reconstructive Surgery
DX: A41.9 Sepsis, unspecified organism (principal); J18.9 Pneumonia, unspecified organism; N17.0 Acute kidney failure with tubular necrosis; R65.21 Severe sepsis with septic shock; E46 Unspecified protein-calorie malnutrition; F20.2 Catatonic schizophrenia; E87.5 Hyperkalemia; K66.8 Other specified disorders of peritoneum; F03.90 Unspecified dementia, unspecified severity, without behavioral disturbance, psychotic disturbance, mood disturbance, and anxiety; E86.0 Dehydration; D75.89 Other specified diseases of blood and blood-forming organs; F32.9 Major depressive disorder, single episode, unspecified; F41.9 Anxiety disorder, unspecified; G89.29 Other chronic pain; K21.9 Gastro-esophageal reflux disease without esophagitis; K80.20 Calculus of gallbladder without cholecystitis without obstruction; M48.00 Spinal stenosis, site unspecified; M50.30 Other cervical disc degeneration, unspecified cervical region; R26.9 Unspecified abnormalities of gait and mobility; H26.9 Unspecified cataract; Z66 Do not resuscitate; Z74.01 Bed confinement status; Z79.899 Other long term (current) drug therapy; Z87.891 Personal history of nicotine dependence; Z87.11 Personal history of peptic ulcer disease; Z87.01 Personal history of pneumonia (recurrent); Z88.8 Allergy status to other drugs, medicaments and biological substances
CPT/HCPCS: 36415; 36600; 71010; 74176; 80053; 81001; 82805; 83605; 83735; 84100; 84484; 85025; 85610; 85730; 87040; 87086; 93005; 96365; 96366; 96367; 96375; 99285